=== PATIENT | female | born 1995 | race Caucasian/White ===

== ENCOUNTER 2019-02-16 16:22 | Emergency (ER) | payer OTHER ==
[2019-02-16 16:40] VITALS: BP 136/85
--- NOTE | 2019-02-16 17:53 | UC ---
UC General HPI - HPI Summary HPI Summary: 5 days ago, pt developed some frequency, urgency and burning with urination. yesterday, she developed some "cramping" over her bladder area as well. she admits to a small amount of diarrhea and vaginal area irritation. she denies any vaginal discharged, lesions or bleeding. she denies any risk/concern for pelvic/std infections and had negative testing last month. she is on BC and denies risk for . she has no nausea, vomiting or fever. pt had a uti once before that felt similar at onset. - History of Current Complaint Chief Complaint: UCAbdominalPain Stated Complaint: ABD PAIN Time Seen by Provider: 02/16/19 17:28 Hx Obtained From: Patient Hx Last Menstrual Period: 02/09/19 Onset/Duration: Gradual Onset Timing: Constant Pain Intensity: 6 - Allergy/Home Medications Allergies/Adverse Reactions: Allergies Allergy/AdvReac Type Severity Reaction Status Date / Time Penicillins Allergy Anaphylatic Verified 02/16/19 16:41 Shock sulfamethoxazole Allergy Anaphylatic Verified 02/16/19 16:41 [From Bactrim] Shock trimethoprim [From Bactrim] Allergy Anaphylatic Verified 02/16/19 16:41 Shock Home Medications: Home Medications Etonogest/Eth.estradiol (Nf) [Nuvaring Vaginal Ring] 1 each VAGINAL .SEE COMMENTS 02/16/19 [History Confirmed 02/16/19] Ibuprofen [Advil] 200 mg PO Q6HR PRN 02/16/19 [History Confirmed 02/16/19] PMH/Surg Hx/FS Hx/Imm Hx Previously Healthy: Yes - Surgical History Surgical History: Yes Surgery Procedure, Year, and Place: Breast augmentation - Family History Known Family History: Positive: Non-Contributory - Social History Alcohol Use: Occasionally Substance Use Type: None Smoking Status (MU): Never Smoked Tobacco Review of Systems All Other Systems Reviewed And Are Negative: Yes Constitutional: Negative: Fever, Chills Gastrointestinal: Positive: Abdominal Pain - "cramping" over bladder, Diarrhea. Negative: Vomiting, Nausea Genitourinary: Positive: Dysuria, Frequency, Urgency. Negative: Hematuria, Vaginal/Penile Discharge, Ulceration/Lesion, Abnormal Bleeding Physical Exam Triage Information Reviewed: Yes Appearance: Well-Appearing Vital Signs: Initial Vital Signs Temp 97.8 F 02/16/19 16:35 Pulse 80 02/16/19 16:35 Resp 16 02/16/19 16:35 BP 136/85 02/16/19 16:35 Pulse Ox 97 02/16/19 16:35 Vital Signs Reviewed: Yes Eyes: Positive: Conjunctiva Clear ENT: Positive: Pharynx normal, TMs normal. Negative: Nasal congestion, Nasal drainage Neck: Positive: Supple, Nontender, No Lymphadenopathy Respiratory: Positive: Lungs clear, Normal breath sounds, No respiratory distress Cardiovascular: Positive: RRR, No Murmur Abdomen Description: Positive: Other: - +BS, soft. Tender over bladder but no guarding or rebound tenderness. No mass. No HSM or CVA tenderness. Pelvic Exam: Positive: Other - declined citing done last monht and no risk/ concern for infection. Musculoskeletal: Positive: ROM Intact Neurological: Positive: Alert Psychological: Positive: Age Appropriate Behavior Skin Exam: Normal Course/Dx - Course Course Of Treatment: pt advised of our inability to check u/a due to the AZO. pt advised also unable to run the urine HCG, again likely due to the AZO. ER transfer suggested because unable to r/o /ectopic and to confirm uti which is more of a concern given her abdominal discomfort. Pt declined ER transfer. I advised of risk for worsening, disability and from a missed diagnosis and failure to tx but pt still declined transfer. pt is A&Ox3. she is able to make decisions thus I must respect her refusal of transfer. I will tx presumptively for a uti while culture is pending. - Diagnoses Provider Diagnosis: Dysuria, Lower abdominal pain Discharge - Sign-Out/Discharge Documenting (check all that apply): Patient Departure All imaging exams completed and their final reports reviewed: No Studies - Discharge Plan Condition: Stable Disposition: HOME Prescriptions: Nitrofurantoin Monohyd/M-Cryst [Macrobid 100 mg Capsule] 100 mg PO BID 5 Days # 10 cap Patient Education Materials: Dysuria (ED), Abdominal Pain (ED) Referrals: Michael Verde MD [Medical Doctor] - 2 Days Additional Instructions: GO TO THE ER AT ANY TIME FOR WORSENING, CHANGES OR YOU YOU CHANGE YOUR MIND. - Billing Disposition and Condition Condition: STABLE Disposition: Home
== END 2019-02-16 18:05 | disposition home or self-care (01) ==
LOC: UCCORT 16:22
DX: R30.0 Dysuria (principal); R10.30 Lower abdominal pain, unspecified; Z88.0 Allergy status to penicillin; Z88.1 Allergy status to other antibiotic agents
CPT/HCPCS: 81003; 87086; 99202; G0463